=== PATIENT | female | born 1995 | race Caucasian/White ===

== ENCOUNTER 2024-12-21 06:00 | Inpatient (IN) | payer BC ==
[2024-12-21] MEDS ORDERED: LIDOCAINE 0.5% (PF) 5 MG/ML (50 ML SDV) SQ PRN (06:35)
[2024-12-21] MEDS ORDERED: miSOPROStoL 200 MCG TAB PO PRN (06:35)
[2024-12-21] MEDS ORDERED: TRANEXAMIC 1,000 MG/100ML-NACL 1,000 MG in EMPTY BAG 1 BAG IV PRN (06:35)
[2024-12-21] MEDS ORDERED: CARBOPROST TROMETHAMINE 250 MCG/ML 1 ML AMP IM PRN (06:35)
[2024-12-21] MEDS ORDERED: METHYLERGONOVINE 0.2 MG/ML 1 ML AMP IM PRN (06:35)
[2024-12-21] MEDS ORDERED: OXYTOCIN 10 UNIT/ML 1 ML VIAL IM PRN (06:35)
[2024-12-21] MEDS ORDERED: TERBUTALINE 1 MG/ML VIAL SQ PRN (06:35)
[2024-12-21] MEDS ORDERED: miSOPROStoL 200 MCG TAB RECTAL PRN (06:35)
[2024-12-21] MEDS: LACTATED RINGERS 1,000 ML IV SCH (07:03)
[2024-12-21] MEDS: OXYTOCIN 30 UNITS/500 ML NS 30 UNIT in SALINE 1 500ML.BAG IV SCH (07:04)
[2024-12-21 07:16] LABS: Basophils # (A) 0.03 10*3/uL (0.00-0.10); Basophils % (A) 0.3 %; Eosinophils # (A) 0.14 10*3/uL (0.04-0.35); Eosinophils % (A) 1.3 %; HCT 33.4 % (37.2-46.3); HGB 11.3 g/dL (12.0-15.0); Lymphocytes # (A) 2.18 10*3/uL (0.90-5.00); Lymphocytes % (A) 20.7 %; MCH 29.5 pg (27.0-32.0); MCHC 33.8 g/dL (32.0-37.0); MCV 87.2 fL (80.0-97.0); Mean Platelet Volume 9.7 fL (9.5-12.2); Monocytes # (A) 0.72 10*3/uL (0.20-1.00); Monocytes % (A) 6.8 %; Neutrophils # (A) 7.36 10*3/uL (1.80-7.70); Neutrophils % (A) 69.8 %; Platelet Count 318 10*3/uL (140-440); RBC 3.83 10*6/uL (4.10-5.20); RDW 13.4 % (11.5-14.5); WBC 10.55 10*3/uL (4.50-10.00)
[2024-12-21] MEDS ORDERED: BUTORPHANOL 1 MG/ML 1 ML VIAL IV PRN (08:38)
--- NOTE | 2024-12-21 08:42 | P.HPOB ---
History of Present Illness H&P Date: 12/21/24 Chief Complaint: 39+ weeks, elective induction The patient is a 29-year-old 3 para 1-0-1-1 admitted at 39+ weeks as established by 8-week ultrasound. She is admitted for elective induction of labor with all signs are reassuring. Her has been uncomplicated and group B strep status is negative. On labor and delivery, there is a category 1 heart rate tracing. Obstetrical history: 3 para 1-0-1-1 with 1 term vaginal delivery without complications. Current statistics are listed in history of present illness. EDC of 12/27/2024 was established by 8-week ultrasound. Laboratory workup demonstrates a blood type of O+ with a negative antibody screen. Rubella status is immune. The remainder of the laboratory workup is within normal limits. Early Glucola as well as second trimester Glucola were within normal limits. Group B strep status is negative. Gynecologic history: Unremarkable with no history of any infections to include STDs. Review of Systems Review of systems is confined to history of present illness. Past Medical History History of Any Multi-Drug Resistant Organisms: None Reported Additional Past Surgical History / Comment(s): right oophorectomy 2009 Past Anesthesia/Blood Transfusion Reactions: No Reported Reaction Past Psychological History: No Psychological Hx Reported Smoking Status: Never smoker Past Drug Use History: None Reported Medications and Allergies Home Medications Medication Instructions Recorded Confirmed Type No Known Home Medications 12/21/24 12/21/24 History Allergies Allergy/AdvReac Type Severity Reaction Status Date / Time metronidazole [From Flagyl] Allergy Unknown Verified 12/21/24 06:34 Exam Vital Signs Temp Pulse Resp BP Pulse Ox 12/21/24 06:33 97.3 F L 103 H 16 116/63 98 Intake and Output 12/20/24 12/21/24 12/21/24 22:59 06:59 14:59 Other: Weight 106.141 kg General, this is a well-developed, well-nourished white female in no acute distress. Her heart has a regular rhythm and rate without murmur. Her lungs clear to auscultation bilaterally in all swanosn. Abdomen is gravid, nondis tended, has normal active bowel sounds, soft, nontender, and without any palpable masses aside from the uterine fundus. Her extremities are without any cyanosis, clubbing, or significant edema and are nontender to palpation bilaterally. Digital cervical examination demonstrates her cervix to be 2+ centimeters dilated, 50% effaced, with a vertex presentation at -3 station. Given the high station and the posterior nature of the cervix, artificial rupture of membranes could not be safely carried out at this time. Results Result Diagrams: 12/21/24 06:53 Abnormal Lab Results - Last 24 Hours (Table) 12/21/24 Range/Units 06:53 WBC 10.55 H (4.50-10.00) 10*3/uL RBC 3.83 L (4.10-5.20) 10*6/uL Hgb 11.3 L (12.0-15.0) g/dL Hct 33.4 L (37.2-46.3) % Immature Gran # 0.12 H (0.00-0.04) 10*3/uL Assessment and Plan (1) Term Current Visit: Yes Status: Acute Code(s): Z34.90 - ENCNTR FOR SUPRVSN OF NORMAL , UNSP, UNSP TRIMESTER SNOMED Code(s): 15533047 Plan: The patient has been admitted for Pitocin augmentation/induction which has been started. She will have artificial rupture of membranes at the earliest conv enient time. She will have close maternal and surveillance and expectant management will be practiced. She is a good candidate for either IV or epidural analgesia, she ever she may choose.
[2024-12-21] MEDS ORDERED: ROPIVACAINE 5 MG/ML 30 ML VIAL ONE (16:35)
[2024-12-21] MEDS ORDERED: SODIUM CHLORIDE 0.9% 250 ML BAG ONE (16:35)
[2024-12-21] MEDS ORDERED: fentaNYL (PF) 50 MCG/ML 5 ML AMP ONE (16:35)
[2024-12-21] MEDS ORDERED: HYDROCORTISONE 2.5% RECTAL CREAM 30 GM TUBE RECTAL PRN (19:25)
[2024-12-21] MEDS ORDERED: ZOLPIDEM 5 MG TAB PO PRN (19:25)
[2024-12-21] MEDS ORDERED: LANOLIN CREAM 1 GM TUBE TOPICAL PRN (19:25)
[2024-12-21] MEDS ORDERED: diphenhydrAMINE 50 MG CAP PO PRN (19:25)
[2024-12-21] MEDS ORDERED: BENZOCAINE/MENTHOL SPRAY 1 GM/SPRAY AEROSOL TOPICAL PRN (19:25)
[2024-12-21] MEDS ORDERED: SIMETHICONE 80 MG CHEWABLE PO PRN (19:25)
[2024-12-21] MEDS ORDERED: diphenhydrAMINE 25 MG CAP PO PRN (19:25)
[2024-12-21] MEDS ORDERED: diphenhydrAMINE 50 MG/ML 1 ML VIAL IVP PRN ×2 (19:25)
[2024-12-21 19:26] VITALS: RESP 16
--- NOTE | 2024-12-21 19:29 | P.PROBDLV ---
Vaginal Delivery Note - . Vaginal Delivery Note: Patient is a 29-year-old 3 para 1-0-1-1 admitted at 39 and 1 sevenths weeks by good dating parameters. She is admitted with all signs reassuring, category 1 heart rate tracing. Her has been entirely uncomplicated and group B strep status is negative. On labor and delivery, she had Pitocin augmentation started. Initial vertex presentation was too high and posterior to affect artificial rupture of membranes. She was allowed to contract for the morning at which time the head had descended into the pelvis significantly and artificial rupture of membranes was carried out for clear fluid. She progressed through the latent phase of labor and into the active phase of labor at which time an epidural was placed for analgesia. She then progressed fairly steadily through the remainder of the active phase of labor to complete. She pushed over the course of approximately 10 to 15 minutes to a normal spontaneous vaginal delivery of a viable 8 pound 0 ounce baby girl with Apgars of 8 at 1 minute and 9 at 5 minutes delivered in the right occiput anterior position. There was a loose nuchal cord x 1 which was reduced following delivery of the . The placenta was delivered spontaneously, intact, and grossly normal though quite large with a grossly normal centrally inserted three-vessel cord. There was a small second-degree midline perineal laceration which was repaired in standard fashion using 3-0 chromic catgut without difficulty. Estimated blood loss for the case was approximately 200 mL. There were no complications. All sponge, instrument, and needle counts were correct. Both mother and infant are resting comfortably in recovery.
[2024-12-21] MEDS ORDERED: OXYTOCIN 30 UNITS/500 ML NS 30 UNIT in SALINE 1 500ML.BAG IV SCH (19:30)
[2024-12-21] MEDS: ONDANSETRON 4 MG/2 ML VIAL IVP STA (22:30)
[2024-12-22] MEDS: ACETAMINOPHEN TAB 500 MG TAB PO PRN (02:14)
[2024-12-22 04:02] LABS: Basophils # (A) 0.04 10*3/uL (0.00-0.10); Basophils % (A) 0.3 %; Eosinophils # (A) 0.07 10*3/uL (0.04-0.35); Eosinophils % (A) 0.5 %; HCT 31.3 % (37.2-46.3); HGB 10.4 g/dL (12.0-15.0); Lymphocytes # (A) 1.81 10*3/uL (0.90-5.00); Lymphocytes % (A) 13.3 %; MCH 29.5 pg (27.0-32.0); MCHC 33.2 g/dL (32.0-37.0); MCV 88.7 fL (80.0-97.0); Mean Platelet Volume 10.1 fL (9.5-12.2); Monocytes # (A) 0.92 10*3/uL (0.20-1.00); Monocytes % (A) 6.8 %; Neutrophils # (A) 10.67 10*3/uL (1.80-7.70); Neutrophils % (A) 78.6 %; Platelet Count 293 10*3/uL (140-440); RBC 3.53 10*6/uL (4.10-5.20); RDW 13.2 % (11.5-14.5); WBC 13.58 10*3/uL (4.50-10.00)
[2024-12-22] MEDS: IBUPROFEN 800 MG TAB PO PRN (05:40)
[2024-12-22] MEDS: SENNOSIDES-DOCUSATE SODIUM 1 EACH TAB PO SCH (05:46)
--- NOTE | 2024-12-22 08:48 | P.DS ---
Providers Date of admission: 12/21/24 06:27 Expected date of discharge: 12/22/24 Attending physician: Aniket Meehan Primary care physician: Stated None - Discharge Diagnosis(es) (1) Term Current Visit: Yes Status: Acute (2) Normal spontaneous vaginal delivery Current Visit: Yes Status: Acute Hospital Course: The patient is a 29-year-old 3 para 1-0-1-1 admitted at 39+ weeks by good dating parameters. She is admitted for elective induction with all signs reassuring, category 1 heart rate tracing. Her was uncomplicated and group B strep status is negative. On labor and delivery, she had Pitocin started followed by artificial rupture of membranes demonstrating clear fluid. She progressed into the active phase of labor and had an epidural catheter placed for analgesia. She ultimately progressed to complete and then pushed to a normal spontaneous vaginal delivery of a viable 8 pound 0 ounce baby girl with Apgars of 8 at 1 minute and 9 at 5 minutes. Her course was unremarkable with vital signs remaining stable and her temperature was afebrile throughout. She is deemed stable for discharge on day #1 and was discharged home to follow-up in the office in 6 weeks time routinely. Discharge instructions included calling for any significantly increased bleeding or foul- smelling lochia, significantly increased fever or abdominal pain, perineal complaints, breast complaints, or anything else that concerned her. She was additionally instructed to have nothing in the vagina for at least 6 weeks time to include intercourse. She understood her instructions and agrees to follow-up as noted above. Discharge medications included continued vitamins as she has opted to breast-feed. She was otherwise instructed to have nothing in the vagina for at least 6 weeks time to include intercourse. She understood her instructions and agrees to follow-up as noted above. Maternal blood type is O+ and rubella status is immune. Procedures: #1. Pitocin induction #2. Artificial rupture of membranes #3. Epidural analgesia #4. Normal spontaneous vaginal delivery #5. Repair of perineal laceration Patient Condition at Discharge: Stable Plan - Discharge Summary New Discharge Prescriptions: No Action No Known Home Medications Discharge Medication List No Known Home Medications 12/21/24 [History] Follow up Appointment(s)/Referral(s): Aniket Meehan MD [STAFF PHYSICIAN] - 6 Weeks Discharge Disposition: HOME SELF-CARE
[2024-12-22 16:07] VITALS: BP 128/82; PULSE 91; TEMP 97.4
== END 2024-12-22 19:45 | disposition home or self-care (01) | DRG 807 ==
LOC: 4FBP 06:27
PROVIDERS: ADMIT Obstetrics & Gynecology; ATTEND Obstetrics & Gynecology
PROC: 0KQM0ZZ Repair Perineum Muscle, Open Approach (ICD-10-PCS; principal; 2024-12-21)
PROC: 10907ZC Drainage of Amniotic Fluid, Therapeutic from Products of Conception, Via Natural or Artificial Opening (ICD-10-PCS; principal; 2024-12-21)
PROC: 3E033VJ Introduction of Other Hormone into Peripheral Vein, Percutaneous Approach (ICD-10-PCS; principal; 2024-12-21)
PROC: 10E0XZZ Delivery of Products of Conception, External Approach (ICD-10-PCS; principal; 2024-12-21)
DX: O69.81X0 Labor and delivery complicated by cord around neck, without compression, not applicable or unspecified (principal); O70.1 Second degree perineal laceration during delivery; Z88.2 Allergy status to sulfonamides; Z90.721 Acquired absence of ovaries, unilateral; Z3A.39 39 weeks gestation of pregnancy; Z37.0 Single live birth
CPT/HCPCS: 85025; 86850; 86900; 86901